=== PATIENT | male | born 1970 | race Two or more races ===

== ENCOUNTER 2018-12-03 00:26 | Emergency (ER) | payer MEDICAID, OTHER ==
[~2018-12-03] VITALS: Ht 170.2 cm; Wt 81.0 kg
[~2018-12-03 00:26] MED LIST: ACYC-202 PO; NO HOME MEDS
[2018-12-03 01:38] LABS: CLARITY,URINE CLEAR (Clear); COLOR,URINE STRAW (Yellow); GLUCOSE, URINE NEGATIVE (Neg); KETONES,URINE NEGATIVE (Neg); LEUKOCYTE ESTERASE ,URINE NEGATIVE (Neg); NITRITES, URINE NEGATIVE (Neg); OCCULT BLOOD,URINE TRACE-INTACT (Neg); PH,URINE 5.5 (4.8-8.0); PROTEIN,URINE NEGATIVE (Neg); UROBILINOGEN,URINE 0.2 E.U/dL (0.2-1.0)
[2018-12-03] MEDS ORDERED: LORazepam 1 MG tablet PO ONE ×3 (01:45→17:55)
[2018-12-03] MEDS ORDERED: nicotine 21mg patch - 24 hr TD ONE (01:45)
[2018-12-03 01:47] LABS: URINE AMPHETAMINE SCREEN NEGATIVE (Neg); URINE BARBITUATE SCREEN NEGATIVE (Neg); URINE BENZODIAZEPINES SCREEN NEGATIVE (Neg); URINE CANNABINOID SCREEN NEGATIVE (Neg); URINE COCAINE SCREEN NEGATIVE (Neg); URINE METHADONE SCREEN NEGATIVE (Neg); URINE OPIATE SCREEN NEGATIVE (Neg); URINE PHENCYCLIDINE SCREEN NEGATIVE (Neg)
[2018-12-03 01:48] LABS: UA COLLECTION TYPE CLN CATCH MIDSTREAM
[2018-12-03 01:49] LABS: BASOPHILS # (AUTO) 0.1 X10'3 (0-0.2); BASOPHILS % (AUTO) 0.8 % (0-1); EOSINOPHILS # (AUTO) 0.5 X10'3 (0-0.9); EOSINOPHILS % (AUTO) 3.2 % (0-6); HEMATOCRIT 46.4 % (42.0-52.0); HEMOGLOBIN 15.4 g/dl (14.0-17.9); LYMPHOCYTES # (AUTO) 2.9 X10'3 (1.1-4.8); LYMPHOCYTES % (AUTO) 20.8 % (21-51); MEAN CORPUSCULAR HEMOGLOBIN 28.1 PG (27.0-31.0); MEAN CORPUSCULAR HGB CONC 33.3 g/dL (33.0-36.5); MEAN CORPUSCULAR VOLUME 84.6 FL (78-98); MEAN PLATELET VOLUME 6.1 FL (7.4-10.4); MONOCYTES # (AUTO) 1.3 X10'3 (0-0.9); MONOCYTES % (AUTO) 9.3 % (2-12); NEUTROPHILS # (AUTO) 9.2 X10'3 (1.8-7.7); NEUTROPHILS % (AUTO) 65.9 % (42-75); PLATELET COUNT 335 X10'3 (140-440); RED BLOOD COUNT 5.49 X10'6 (4.70-6.10); RED CELL DISTRIBUTION WIDTH 14.2 % (11.5-14.5); WHITE BLOOD COUNT 13.9 X10'3 (4.5-11.0)
[2018-12-03 01:51] LABS: RBC,URINE 0-2 /HPF (0-2); WBC,URINE 0-4 /HPF (0-4)
[2018-12-03 01:52] LABS: BACTERIA,URINE FEW /HPF (Neg); SQUAMOUS EPITHELIAL CELL,UR FEW /LPF (FEW)
[2018-12-03 02:14] LABS: ALANINE AMINOTRANSFERASE 52 U/L (12-78); ALBUMIN 4.1 G/DL (3.4-5.0); ALBUMIN/GLOBULIN RATIO 0.9 (1.1-1.5); ALKALINE PHOSPHATASE 53 IU/L (46-116); ANION GAP 14 (8-16); ASPARTATE AMINO TRANSFERASE 38 U/L (10-37); BILIRUBIN,TOTAL 0.2 MG/DL (0.1-1.0); BLOOD UREA NITROGEN 7 MG/DL (7-18); BUN/CREATININE RATIO 9.9 (5.4-32.0); CALCIUM 8.7 MG/DL (8.5-10.1); CHLORIDE 102 MMOL/L (99-107); CREATININE 0.71 MG/DL (0.60-1.10); GLUCOSE 104 MG/DL (70-104); POTASSIUM 3.9 MMOL/L (3.5-5.1); SODIUM 137 MMOL/L (135-145); TOTAL CARBON DIOXIDE 21.4 MMOL/L (24-32); TOTAL PROTEIN 8.5 G/DL (6.4-8.2); eGFR > 90 ML/MIN
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
[2018-12-03 02:23] LABS: ETHANOL 0.189 GM/DL (0.0-0.010)
--- NOTE | 2018-12-03 02:35 | NUR ---
Tele Psyc consult initiated
--- NOTE | 2018-12-03 06:35 | NUR ---
Telepsych just finished with patient. Patient is awake and alert and chatting with another patient. No distress observed. Continue to monitor.
--- NOTE | 2018-12-03 10:00 | NUR ---
Amanda LEIGH, evaluating patient. Continue to monitor.
--- NOTE | 2018-12-03 12:10 | NUR ---
Patient awake and alert. No distress observed. Patient states he is very depressed and thinks of suicide often. Patient states he was drunk when he jumped off the bridge. Patient has several previous suicide attempts. Patient states he hears voices at times but no presently. Patient states he doesn't have a regular doctor to be evaluated. Continue to monitor.
--- NOTE | 2018-12-03 13:50 | NUR ---
Patient stated he feels anxious and like he is withdrawing from ETOH. RN advised Dr Johnston who ordered 1 mg Ativan X 1. We will monitor patient's vital signs and evaluate for needed medication. Continue to monitor.
--- NOTE | 2018-12-03 14:53 | NUR ---
Patient moved to bed 25 to give him more privacy. Patient did not eat breakfast or lunch and states he never eats until dinner. Patient is thin. Continue to monitor.
--- NOTE | 2018-12-03 16:58 | NUR ---
Patient laying in bed with covers up to neck, awake and alert. No distress observed. Continue to monitor.
[2018-12-03 18:17] LABS: BASOPHILS # (AUTO) 0.1 X10'3 (0-0.2); BASOPHILS % (AUTO) 1.1 % (0-1); EOSINOPHILS # (AUTO) 0.5 X10'3 (0-0.9); EOSINOPHILS % (AUTO) 5.2 % (0-6); HEMATOCRIT 43.7 % (42.0-52.0); HEMOGLOBIN 14.5 g/dl (14.0-17.9); LYMPHOCYTES # (AUTO) 2.3 X10'3 (1.1-4.8); LYMPHOCYTES % (AUTO) 23.3 % (21-51); MEAN CORPUSCULAR HGB CONC 33.2 g/dL (33.0-36.5); MEAN CORPUSCULAR VOLUME 84.2 FL (78-98); MEAN PLATELET VOLUME 5.9 FL (7.4-10.4); MONOCYTES # (AUTO) 1.2 X10'3 (0-0.9); NEUTROPHILS # (AUTO) 5.7 X10'3 (1.8-7.7); NEUTROPHILS % (AUTO) 58.4 % (42-75); PLATELET COUNT 329 X10'3 (140-440); RED BLOOD COUNT 5.19 X10'6 (4.70-6.10); RED CELL DISTRIBUTION WIDTH 14.5 % (11.5-14.5); WHITE BLOOD COUNT 9.7 X10'3 (4.5-11.0)
[2018-12-03 18:26] LABS: ALANINE AMINOTRANSFERASE 49 U/L (12-78); ALBUMIN 3.6 G/DL (3.4-5.0); ALBUMIN/GLOBULIN RATIO 0.9 (1.1-1.5); ALKALINE PHOSPHATASE 49 IU/L (46-116); ANION GAP 9 (8-16); ASPARTATE AMINO TRANSFERASE 33 U/L (10-37); BILIRUBIN,TOTAL 0.5 MG/DL (0.1-1.0); BLOOD UREA NITROGEN 8 MG/DL (7-18); BUN/CREATININE RATIO 11.4 (5.4-32.0); CALCIUM 8.8 MG/DL (8.5-10.1); CHLORIDE 102 MMOL/L (99-107); GLUCOSE 74 MG/DL (70-104); POTASSIUM 4.4 MMOL/L (3.5-5.1); SODIUM 137 MMOL/L (135-145); TOTAL CARBON DIOXIDE 26.4 MMOL/L (24-32); TOTAL PROTEIN 7.5 G/DL (6.4-8.2); eGFR > 90 ML/MIN
--- NOTE | 2018-12-03 19:00 | NUR ---
Received pt resting quietly in bed.
--- NOTE | 2018-12-03 21:00 | NUR ---
Pt c/o withdrawal symptoms: shaking. None noted. Given ativan 1mg.
--- NOTE | 2018-12-03 23:00 | NUR ---
Pt asleep in bed, without distress noted.
--- NOTE | 2018-12-04 01:00 | NUR ---
Pt asleep in bed, without distress noted.
--- NOTE | 2018-12-04 03:00 | NUR ---
Pt asleep in bed, without distress noted.
--- NOTE | 2018-12-04 05:00 | NUR ---
Pt remains asleep without distress.
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
[2018-12-04] MEDS: LORazepam 1 MG tablet PO PRN ×3 (08:23→20:31)
--- NOTE | 2018-12-04 08:30 | NUR ---
Served breakfast. Refused his meal. Given Ativan 2 mg. PO PRN for anxiety.
--- NOTE | 2018-12-04 10:52 | NUR ---
Patient is not exhibiting symptoms of alcohol withdrawal, nor is he on the alcohol protocol. Vital signs taken at this time: P = 86, R = 20, B/P = 116/72, O2 = 99
--- NOTE | 2018-12-04 13:30 | NUR ---
relieving RN for lunch, gave report to [facility], they will present case to provider and call back if they accept pt
--- NOTE | 2018-12-04 14:00 | NUR ---
Informed he would be transferred to [facility] this evening. Initially stated he refused to go and would "leave this hospital." Spoke with patient at length about the benefit of in-patient treatment and about the seriousness of his suicide attempt. Patient accepted information poorly. Asked to use the phone. Spoke at length with girlfriend via phone, then asked staff to talk with girlfriend to further explain the transfer to the [facility]. Patient remains unhappy and restless at this time. Given Ativan 2 mg.PO PRN to decrease agitation/increase comfort.
[2018-12-04] MEDS ORDERED: nicotine 21mg patch - 24 hr TD ONE (16:20)
--- NOTE | 2018-12-04 16:34 | NUR ---
Habitrol Patch 21 mg. administered as ordered.
--- NOTE | 2018-12-04 16:42 | NUR ---
Patient attempted to leave the unit by walking out the back door. Confronted by the Lead Supply Worker Linnea and brought back to his bed. Elopement band placed on patient's wrist.
--- NOTE | 2018-12-04 18:30 | NUR ---
Assumed care of pt., pt. sitting up in bed eating dinner at this time. Slightly irritable regarding not being able to go home and pending tx to [facility], however cooperative. Pt. resting in bed, rr even and unlabored.
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
--- NOTE | 2018-12-04 20:45 | NUR ---
Pt. discharged to [facility] accompanied by route driver salesperson and security. Belongings with pt., will call and give report to facility and nurse.
[2018-12-04 21:03] VITALS: BP 130/90
== END 2018-12-04 21:07 ==
LOC: ER 00:27
DX: T14.91XA Suicide attempt, initial encounter (principal); M25.562 Pain in left knee; Z79.899 Other long term (current) drug therapy; Y93.39 Activity, other involving climbing, rappelling and jumping off; Y92.89 Other specified places as the place of occurrence of the external cause; Y99.8 Other external cause status
CPT/HCPCS: 36415; 80053; 80305; 80320; 81001; 84443; 85025; 99285

== ENCOUNTER 2018-12-04 21:58 | Emergency (ER) | payer MEDICAID ==
[~2018-12-04] VITALS: Ht 175.3 cm; Wt 150.0 kg
[~2018-12-04 21:58] MED LIST changes: -ACYC-202 PO
--- NOTE | 2018-12-04 22:00 | NUR ---
Pt. brought back from [facility] by [facility] rolloff driver Liban. [facility] met rolloff driver at the door and told him they were not accepting pt. now. [facility] reports that they tried to call and tell [facility] of this change in plans, however this data analyst report writer never received that phone call. Marilin from [facility] informed, and she reports pt. is to stay another night in [facility] and be re-evaluated for 5150 hold in the morning. Pt. voices understanding and is cooperative. He is on the phone at this time informing his GF of the situation. Will continue to monitor.
--- NOTE | 2018-12-04 22:30 | NUR ---
Admission assessments and 1:1 completed at bedside, pt. is pleasant and cooperative. He denies any pain and no s/s of alcohol withdrawal present at this time AEB no tremors, diaphoresis, n/v and V/S are WNL. Pt. continues to deny S/I or plan at this time, however admits that he has a history of depression and is feeling a little depressed. He would like to obtain an MD at [facility] and a counselor, this proposal writer encouraged pt. to discuss this in the morning with [facility] and he voiced understanding. Pt. also reports past suicide attempts to drown self, strangle self, and cut self. He denies any home medications.
--- NOTE | 2018-12-04 23:25 | NUR ---
Obtained new order for Ativan 1mg Q 6 hr. PRN for anxiety or s/s of alcohol withdrawl from Dr. Caraballo. New order to obtain U/A, however pt. asleep at this time, and will obtain when pt. uses the BR.
[2018-12-04 23:26] LABS: BASOPHILS # (AUTO) 0.1 X10'3 (0-0.2); EOSINOPHILS # (AUTO) 0.5 X10'3 (0-0.9); EOSINOPHILS % (AUTO) 5.4 % (0-6); HEMATOCRIT 44.1 % (42.0-52.0); HEMOGLOBIN 14.5 g/dl (14.0-17.9); LYMPHOCYTES # (AUTO) 2.3 X10'3 (1.1-4.8); LYMPHOCYTES % (AUTO) 22.7 % (21-51); MEAN CORPUSCULAR HEMOGLOBIN 28.2 PG (27.0-31.0); MEAN CORPUSCULAR VOLUME 85.4 FL (78-98); MONOCYTES # (AUTO) 1.2 X10'3 (0-0.9); MONOCYTES % (AUTO) 12.4 % (2-12); NEUTROPHILS # (AUTO) 5.8 X10'3 (1.8-7.7); NEUTROPHILS % (AUTO) 58.5 % (42-75); PLATELET COUNT 326 X10'3 (140-440); RED BLOOD COUNT 5.17 X10'6 (4.70-6.10); RED CELL DISTRIBUTION WIDTH 14.5 % (11.5-14.5); WHITE BLOOD COUNT 9.9 X10'3 (4.5-11.0)
[2018-12-04 23:31] LABS: ALANINE AMINOTRANSFERASE 47 U/L (12-78); ALBUMIN 3.5 G/DL (3.4-5.0); ALBUMIN/GLOBULIN RATIO 0.9 (1.1-1.5); ALKALINE PHOSPHATASE 52 IU/L (46-116); ANION GAP 10 (8-16); ASPARTATE AMINO TRANSFERASE 29 U/L (10-37); BILIRUBIN,TOTAL 0.3 MG/DL (0.1-1.0); BLOOD UREA NITROGEN 10 MG/DL (7-18); BUN/CREATININE RATIO 12.2 (5.4-32.0); CALCIUM 9.1 MG/DL (8.5-10.1); CHLORIDE 103 MMOL/L (99-107); CREATININE 0.82 MG/DL (0.60-1.10); ETHANOL < 0.010 GM/DL (0.0-0.010); GLUCOSE 98 MG/DL (70-104); POTASSIUM 3.9 MMOL/L (3.5-5.1); SODIUM 137 MMOL/L (135-145); TOTAL CARBON DIOXIDE 24.2 MMOL/L (24-32); TOTAL PROTEIN 7.4 G/DL (6.4-8.2); eGFR > 90 ML/MIN
--- NOTE | 2018-12-05 00:34 | NUR ---
Pt. sleeping on his rt side at this time, appears to be resting comfortably. Will monitor. RR even and unlabored.
--- NOTE | 2018-12-05 02:31 | NUR ---
Pt. continues to sleep on rt side, rr even and unlabored, appears to be resting comfortably.
--- NOTE | 2018-12-05 04:40 | NUR ---
Pt. continues to sleep on his rt. side, appears to be resting comfortably. Will continue to monitor.
[2018-12-05 05:37] VITALS: BP 133/96
[2018-12-05] MEDS: LORazepam 1 MG tablet PO PRN ×2 (05:42→11:32)
--- NOTE | 2018-12-05 05:48 | NUR ---
Pt. awake and urine obtained and sent to lab, results pending. Pt. requests PRN Ativan r/t anxiety, medication administered. Pt. laying in bed, rr even and unlabored.
[2018-12-05 06:17] LABS: URINE AMPHETAMINE SCREEN NEGATIVE (Neg); URINE BARBITUATE SCREEN NEGATIVE (Neg); URINE BENZODIAZEPINES SCREEN NEGATIVE (Neg); URINE CANNABINOID SCREEN NEGATIVE (Neg); URINE COCAINE SCREEN NEGATIVE (Neg); URINE METHADONE SCREEN NEGATIVE (Neg); URINE OPIATE SCREEN NEGATIVE (Neg); URINE PHENCYCLIDINE SCREEN NEGATIVE (Neg)
--- NOTE | 2018-12-05 06:30 | NUR ---
Assumed care; pt laying on his right side appears to be asleep; RR even and unlabored.
--- NOTE | 2018-12-05 08:22 | NUR ---
Pt awake and requesting to go. He ate his breakfast and is now laying on his back w/his eyes opened hands behind his head.
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
--- NOTE | 2018-12-05 11:00 | NUR ---
Pt is now sitting on his bed with his hand holding his head. Affect is flat. He states, he is tired of arguing w/his GF and they have discussed her not drinking she has told him she is not going to stop right now.
--- NOTE | 2018-12-05 11:38 | NUR ---
Recieved report from HANG Patel pt has been accepted at [facility]. Pt would like to go home but agrees to go upstairs to see a psychiatrist.
--- NOTE | 2018-12-05 12:30 | NUR ---
Pt discharged to [facility]. Escort provided by [facility] [employer], [employer] and [employer]. All personal property discharged w/pt to [facility] per CAROLE Garza. Pt remains quiet, requesting to go home. Affect is flat he appears depressed keeping his head down when speaking to you. His story regarding ju Addendum: 12/05/18 at 1244 by CHELE jumping from the bridge changed numerous times.
== END 2018-12-05 12:30 ==
LOC: ER 21:58
DX: F32.9 Major depressive disorder, single episode, unspecified (principal); R45.851 Suicidal ideations; F17.200 Nicotine dependence, unspecified, uncomplicated; Z98.890 Other specified postprocedural states
CPT/HCPCS: 36415; 80053; 80305; 80320; 85025; 99285

== ENCOUNTER 2018-12-05 11:28 | Inpatient (IN) | payer MEDICAID ==
[~2018-12-05] VITALS: Ht 175.3 cm; Wt 68.0 kg
[2018-12-05] MEDS ORDERED: magnesium hydroxide 30ml (MOM) UD suspension PO PRN (13:05)
[2018-12-05] MEDS ORDERED: acetaminophen 325mg tablet PO PRN ×2 (13:05)
[2018-12-05] MEDS ORDERED: mag hydrox/Alum hydrox/simeth 30ml oral suspension PO PRN (13:05)
[2018-12-05] MEDS ORDERED: loperamide 2mg capsule PO PRN (13:05)
[2018-12-05] MEDS ORDERED: tuberculin, purif. prot. deriv. 5 units/0.1ml ID ONE (13:05)
[2018-12-05 13:14] VITALS: BP 136/104
[2018-12-05] MEDS: nicotine 21mg patch - 24 hr TD SCH (13:31)
--- NOTE | 2018-12-05 14:09 | NUR ---
Admission note: Pt arrives on unit at 12:30. Pt admitted by Dr Oliver for Depression. PT told police he jumped off the [address] bridge and hurt his knee. Pt later admits to climbing under bridge and jumping into the water. Pt admits to making attempts before. Pt brought up ambulatory from the ER on 5150. Pt cooperative with admission process. PT states he does want help and would like a primary MD and to be started on medications. Pt has medical hz of Asthma, Knee deformity, scoliosis, and some sort of testicular tumor undiagnosed. Pt encouraged to show this to the Hospitalist tomorrow. Pt states feeling fine other than some DT symptoms, shaky,anxious, nervousness.
[2018-12-05] MEDS: hydrOXYzine 25 MG tablet PO PRN (16:20)
[2018-12-05 20:00] VITALS: BP 142/100
[2018-12-05 20:30] VITALS: BP 120/80
[2018-12-05] MEDS: LORazepam 1 MG tablet PO PRN (21:01)
--- NOTE | 2018-12-06 01:33 | NUR ---
Nursing Progress Note: Legal hold: 5150 Client on involuntary status for DTS Report received from nurse with use of SBAR: Why are they here: Pt admitted by Dr Oliver for depression with DTS. PT told police he jumped off the [address] bridge and hurt his knee. Pt later admits to climbing under bridge and jumping into the water. Pt admits to making suicide attempts before. He admits to consuming 12 beers per day, however no s/s of withdrawal noted at this time. Pt. reports he would like to obtain a primary care doctor to have some chronic medical issues addressed and a counselor. Assessment What has happened this shift: Pt. up in the hallway requesting to take a shower at the beginning of the shift, shower taken and pt. voiced content. 1:1 completed at bedside, pt. presents as cooperative, restless, and slightly irritable, and requests PRN Ativan. He reports the Atrax he took earlier for anxiety did not help him. PRN Ativan administered, pt. states, "The only reason I haven't skipped out the door is that you guys are going to work with me to get a primary doctor, and I don't want a warrant." This medical writer provided encouragement and assured pt. that he would be meeting with a mental health social worker and we will help him as here as best as we can, pt. voiced content. Pt. denies S/I, and reports some on-gong depression and anxiety. He denies any s/s of alcohol withdrawal AEB no tremors, n/V, and V/S are WNL. Nicotine patch removed at HS, and pt. educated by this medical writer that it can cause nightmares if left on. Pt. voiced understanding, however stated, "I always have nightmares." Will monitor and endorse to AM shift. S/I, H/I: Denies A/VH: Denies Sleep: Pt. reports he has been sleeping well, however endorses nightmares, will monitor. ADL's: Independent Group attendance: Attends HS snack Were meds taken: Yes Any med S/E: None Mental Status Exam Appearance: Neat and freshly showered, appropriately dressed in hospital attire. Psychomotor activity WNL Eye contact: Good Behavior: Cooperative with some restlessness and irritability Speech: WNL, somewhat pressured when irritated Mood: Slightly irritable, however pleasant Affect: Constricted Thought process: Goal oriented with some poverty of though in regard to mental illness Thought Content: Phobia r/t being in a mental health facility Cognition: A &O X4 Insight: Poor to fair Judgment: Fair Interventions PRN's used: Ativan Therapeutic interventions: Introduced self and attempted to establish rapport, maintained a safe and therapeutic environment, ensured contract for safety, monitored for changes in behavior or risk for elopement and needed intervention, monitored for any s/s of withdrawal, provided positive encouragement, and maintained Q 15 min safety checks. Restraints/seclusion/emergency medication: N/A Justification of Continued Inpatient Treatment: Pt. requires interruption of current crisis, medication adjustments, and a safe and therapeutic environment.
[2018-12-06] MEDS: nicotine 21mg patch - 24 hr TD SCH (06:12)
[2018-12-06 08:00] VITALS: BP 138/101
[2018-12-06] MEDS: LORazepam 1 MG tablet PO PRN (08:57)
[2018-12-06 09:58] LABS: CHOL/HDL RATIO 4.1 (0.00-4.99); CHOLESTEROL 219 MG/DL (0-200); HDL CHOLESTEROL 53 MG/DL (35-60); LDL CHOLESTEROL 160 MG/DL (50-100); TRIGLYCERIDES 66 MG/DL (20-135)
[2018-12-06] MEDS ORDERED: hydrOXYzine 25 MG tablet PO PRN (13:20)
--- NOTE | 2018-12-06 13:23 | NUR ---
1330 - After further hx gathering regarding previous care at [facility], the original D/C plan was to reestablished with a new medical provider now that his previous has retired and would then be able to access PCN care with Dr. Lino and this EDUCATIONAL AIDE. Since that earlier discussion and plan, new info has surfaced. Pt was last seen by YUE Rice/SULEMA in 2010 with no further tx at [facility] and currently is not a pt at [facility]. Pt is not established in any care system in [facility]. Pt is Partnership and is eligable to reestablish care at [facility] but will be unable to access immedietly following discharge from [facility]. Pt was advised of this recent updated info. LUIS Mansfield
[2018-12-06] MEDS ORDERED: amLODIPine 5mg tablet PO ONE (16:00)
[2018-12-06] MEDS: duloxetine 30mg CAPSULE.DR PO SCH (16:14)
[2018-12-06] MEDS: hydrOXYzine 25 MG tablet PO PRN (16:15)
--- NOTE | 2018-12-06 16:34 | NUR ---
Nursing Progress Note: Legal hold: 5150 Client on involuntary status for DTS Report received from HANG Tomlinson with use of SBAR: Why are they here: Pt admitted by Dr Oliver for depression with DTS. PT told police he jumped off the [address] bridge and hurt his knee. Pt later admits to climbing under bridge and jumping into the water. Pt admits to making suicide attempts before. He admits to consuming 12 beers per day, however no s/s of withdrawal noted at this time. Pt. reports he would like to obtain a primary care doctor to have some chronic medical issues addressed and a counselor. Assessment What has happened this shift: The patient was awake at change of shift. Depressed irritated mood and anxious affect. States he feels hopeless and worthless as he has been out of work and not contributing to his household. Difficulties and tensions with girlfriend whom he has been living with and together for 9 years. States he loves her very much but they fight over problems concerning her adult daughter and her huge dogs that live in his garage and cause stress to the household. 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 He also expresses concern he has "Erectile Dysfunction" and a growth on his right testicle. Ativan and Atarax used today for anxiety with good results. he is cooperative and calm and is seeking help. S/I, H/I: Denies A/VH: Denies Sleep: None ADL's: Independent Group attendance: Yes Were meds taken: Yes Any med S/E: None Mental Status Exam Appearance: Neat and clean Eye contact: Good Behavior: Cooperative with some restlessness and irritability Speech: WNL, somewhat pressured when irritated Mood: Slightly irritable, however pleasant Affect: Constricted Thought process: Goal oriented with some poverty of though in regard to mental illness Thought Content: Circumstantial Cognition: A &O X4 Insight: Poor to fair Judgment: Poor Interventions PRN's used: Ativan and Atarax Therapeutic interventions: Introduced self and attempted to establish rapport, maintained a safe and therapeutic environment, ensured contract for safety, monitored for changes in behavior or risk for elopement and needed intervention, monitored for any s/s of withdrawal, provided positive encouragement, and maintained Q 15 min safety checks. Restraints/seclusion/emergency medication: N/A Justification of Continued Inpatient Treatment: Pt. requires interruption of current crisis, medication adjustments, and a safe and therapeutic environment
[2018-12-06 20:00] VITALS: BP 162/111
[2018-12-06] MEDS: prazosin 1mg capsule PO SCH (20:48)
[2018-12-06] MEDS ORDERED: haloperidol 5mg tablet PO PRN (23:30)
[2018-12-06] MEDS ORDERED: LORazepam 2 mg/ml vial IV PRN (23:30)
[2018-12-06] MEDS ORDERED: haloperidol lactate 5mg/ml inj IM PRN (23:30)
--- NOTE | 2018-12-07 03:57 | NUR ---
Nursing Progress Note: Legal hold: 5150 Client on involuntary status for DTS Report received from nurse with use of SBAR: HANG Patel Why are they here: Pt admitted by Dr Oliver for depression with DTS. PT told police he jumped off the [address] and hurt his knee. Pt later admits to climbing under bridge and jumping into the water. Pt admits to making suicide attempts before. He admits to consuming 12 beers per day, however no s/s of withdrawal noted at this time. Pt. reports he would like to obtain a primary care doctor to have some chronic medical issues addressed and a counselor. Assessment What has happened this shift: The patient was in his room at shift change sitting in a chair in the corner. He agreed to 1:1 at bedside. The patient presents as irritable and angry. When talking to the patient and asking what happened to bring him here, he stated, "I was kicked out by my ." He did not explain what happened. When talking to him, he was told that sometimes homeless patients go to [facility]. Now, he reports that he's not really kicked out and will be returning. The patient took what was said literally, and got upset, thinking he was going to be held somewhere else. He believes that he was tricked, with his 5150 starting when he arrived on the unit. He says he's absolutely leaving when 72 hours is up. "I just want to do what's required of me, then go home." The patient admits to being depressed and anxious, and states that he's made many attempts at ending his life, but he's denying SI/HI right now. The patient has medical concerns, and was seen by Dr. San today. He shows no signs of being in withdrawals from alcohol. S/I, H/I: Denies A/VH: Denies Sleep: Reports good sleep. ADL's: Independent Group attendance: No groups at night. Were meds taken: Yes Any med S/E: None Mental Status Exam Appearance: Clean, well dressed in hospital scrubs. Good hygiene. Eye contact: Good Behavior: Sits in his room alone being irritated and upset at being here. Speech: Normal rate/rhythm. Pressured when irritated. Mood: Irritable. Affect: Constricted Thought process: Linear, goal oriented. Thought Content: Preoccupied with getting out of here. Cognition: A &O X4 Insight: Poor to fair Judgment: Fair Interventions PRN's used: Therapeutic interventions: Introduced self and attempted to establish rapport, maintained a safe and therapeutic environment, ensured contract for safety, monitored for changes in behavior or risk for elopement and needed intervention, monitored for any s/s of withdrawal, provided positive encouragement, and maintained Q 15 min safety checks. Restraints/seclusion/emergency medication: N/A Justification of Continued Inpatient Treatment: Pt. requires interruption of current crisis, medication adjustments, and a safe and therapeutic environment.
[2018-12-07 07:00] VITALS: BP 143/108
[2018-12-07] MEDS ORDERED: amLODIPine 5mg tablet PO SCH (08:00)
[2018-12-07] MEDS: duloxetine 30mg CAPSULE.DR PO SCH (08:24)
[2018-12-07] MEDS: folic acid 1mg tablet PO SCH (08:24)
[2018-12-07] MEDS: multivitamins, therapeutics tablet PO SCH (08:24)
[2018-12-07] MEDS: thiamine 100mg tablet PO SCH (08:25)
[2018-12-07] MEDS: nicotine 21mg patch - 24 hr TD SCH (08:44)
[2018-12-07] MEDS ORDERED: amLODIPine 5mg tablet PO ONE (09:10)
[2018-12-07] MEDS ORDERED: NICOTINE POLACRILEX 2 MG LOZENGE MM PRN (12:20)
[2018-12-07] MEDS: LORazepam 1 MG tablet PO PRN ×2 (12:21→20:22)
--- NOTE | 2018-12-07 14:54 | NUR ---
Nursing Progress Note: Legal hold: 5150 Client on involuntary status for DTS Report received from nurse with use of SBAR: Bushra RN Why are they here: Pt admitted by Dr Oliver for depression with DTS. PT told police he jumped off the [address] bridge and hurt his knee. Pt later admits to climbing under bridge and jumping into the water. Pt admits to making suicide attempts before. He admits to consuming 12 beers per day, however no s/s of withdrawal noted at this time. Pt. reports he would like to obtain a primary care doctor to have some chronic medical issues addressed and a counselor. Assessment What has happened this shift: The patient was in his room at shift change sitting at bedside. He agreed to 1:1 at bedside. The patient presents as calm and cooperative. Rates depression as a 3/10 compared to 10/10 on admission. States his issues are woman related and shared that his girlfriend does not want him to return home. Pt. Approached this insurance underwriter around noon stating that he was really freaking out. Reports he has attempted to call girlfriend several times to get his sons phone number but she is not answering or responding. Rated anxiety at a 10/10, medicated with Ativan, and provided 1:1 therapeutic communication. Patient admits current living environment is not healthy and he wishes to stop smoking and stop drinking. He will then revert to wanting to go home and make it work with girlfriend. He has formulated alternative plans if he doesnt return home which includes staying with his son. This insurance underwriter mentioned the [place], which he seemed to be okay with. Patient did report that girl friend called back and agreed to notify his son of his admission. S/I, H/I: Denies A/VH: Denies Sleep: 7.25 ADL's: Independent Group attendance: Yes. Were meds taken: Yes Any med S/E: None Mental Status Exam Appearance: Clean, well dressed in hospital scrubs. Good hygiene. Eye contact: Good Behavior: Appropriate with periods on increased anxiety. Speech: Normal rate/rhythm. Pressured when irritated. Mood: Labile Affect: Congruent with mood Thought process: Linear, goal oriented. Thought Content: Getting better, finding job and housing Cognition: A &O X4 Insight: Poor to fair Judgment: Fair Interventions PRN's used: Ativan Therapeutic interventions: Introduced self and attempted to establish rapport, maintained a safe and therapeutic environment, ensured contract for safety, monitored for changes in behavior or risk for elopement and needed intervention, monitored for any s/s of withdrawal, provided positive encouragement, and maintained Q 15 min safety checks. Restraints/seclusion/emergency medication: N/A Justification of Continued Inpatient Treatment: Pt. requires interruption of current crisis, medication adjustments, and a safe and therapeutic environment.
[2018-12-07 19:55] VITALS: BP 134/88
[2018-12-07] MEDS: prazosin 1mg capsule PO SCH (20:22)
--- NOTE | 2018-12-08 03:49 | NUR ---
Nursing Progress Note: Legal hold: 5250 Client on involuntary status for DTS Report received from nurse with use of SBAR: HANG Patel Why are they here: Pt admitted by Dr Oliver for depression with DTS. PT told police he jumped off the [address] bridge and hurt his knee. Pt later admits to climbing under bridge and jumping into the water. Pt admits to making suicide attempts before. He admits to consuming 12 beers per day, however no s/s of withdrawal noted at this time. Pt. reports he would like to obtain a primary care doctor to have some chronic medical issues addressed and a counselor. Assessment What has happened this shift: The patient was seen in the rec room for 1:1. He reports that he had a good day. 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 The patient now believes that he's not welcome back at his girlfriends house. He states that he will quit drinking, smoking, and plans to get a job, then try and win her back. He says that he's eating well, sleeping good, and is happy with medications. The patient has spent more time on the unit today, versus isolating in his room. He denies SI/HI, or AV/H. S/I, H/I: Denies A/VH: Denies Sleep: Reports good sleep. ADL's: Independent Group attendance: No groups at night. Were meds taken: Yes Any med S/E: None Mental Status Exam Appearance: Clean, well dressed in Angelito's, t-shirt, and hat. Good hygiene. Eye contact: Good Behavior: the patient spent the evening calmly watching basketball on tv. Speech: Normal rate/rhythm. Pressured when irritated. Mood: Irritable, labile. Affect: Constricted Thought process: Linear, goal oriented. Thought Content: Preoccupied with getting out of here. Cognition: A &O X4 Insight: Poor to fair Judgment: Fair Interventions PRN's used: Therapeutic interventions: Introduced self and attempted to establish rapport, maintained a safe and therapeutic environment, ensured contract for safety, monitored for changes in behavior or risk for elopement and needed intervention, monitored for any s/s of withdrawal, provided positive encouragement, and maintained Q 15 min safety checks. Restraints/seclusion/emergency medication: N/A Justification of Continued Inpatient Treatment: Pt. requires interruption of current crisis, medication adjustments, and a safe and therapeutic environment.
[2018-12-08] MEDS: duloxetine 30mg CAPSULE.DR PO SCH (07:57)
[2018-12-08] MEDS: multivitamins, therapeutics tablet PO SCH (07:57)
[2018-12-08] MEDS: thiamine 100mg tablet PO SCH (07:58)
[2018-12-08] MEDS: amLODIPine 5mg tablet PO SCH (07:59)
[2018-12-08] MEDS: folic acid 1mg tablet PO SCH (07:59)
[2018-12-08] MEDS: nicotine 21mg patch - 24 hr TD SCH (08:02)
[2018-12-08 08:15] VITALS: BP 135/94
--- NOTE | 2018-12-08 17:30 | NUR ---
Nursing Progress Note: Legal hold: Voluntary Client on involuntary status for DTS Report received from nurse with use of SBAR: HANG Patel Why are they here: Pt admitted by Dr Oliver for depression with DTS. PT told police he jumped off the [employer] bridge and hurt his knee. Pt later admits to climbing under bridge and jumping into the water. Pt admits to making suicide attempts before. He admits to consuming 12 beers per day, however no s/s of withdrawal noted at this time. Pt. reports he would like to obtain a primary care doctor to have some chronic medical issues addressed and a counselor. Assessment What has happened this shift: Pt. is awake at beginning of shift in community room watching tv. Pt. is social on unit talking with other pt.s. 1:1 done at bedside, pt. reports feeling anxious and depressed but denies SI/HI, A/V H. Pt. took medications. Pt. reports he does not feel ready to be discharged yet as he wants to get his medications stabalized. Pt. denies ETOH cravings. S/I, H/I: Denies A/VH: Denies Sleep: 8.25 ADL's: Independent Group attendance: Attended groups and participated Were meds taken: Yes Any med S/E: None Mental Status Exam Appearance: Clean, well dressed in Angelito's, t-shirt, and hat. Good hygiene. Eye contact: Good Behavior: the interacting with pt. and on the daniel appropriately, watching tv. Speech: Normal rate/rhythm. Mood: pleasent but easily frustrated. Affect: Constricted Thought process: Linear, goal oriented. Thought Content: Feels it's good for him to stay here and gets his medications right. Cognition: A&O X4 Insight: Fair Judgment: Fair Interventions PRN's used: Therapeutic interventions: Introduced self and attempted to establish rapport, maintained a safe and therapeutic environment, ensured contract for safety, monitored for changes in behavior or risk for elopement and needed intervention, monitored for any s/s of withdrawal, provided positive encouragement, and maintained Q 15 min safety checks. Restraints/seclusion/emergency medication: N/A Justification of Continued Inpatient Treatment: Pt. requires interruption of current crisis, medication adjustments, and a safe and therapeutic environment.
--- NOTE | 2018-12-08 19:39 | NUR ---
Nursing Progress Note: Legal hold: Voluntary Client on involuntary status for DTS Report received from nurse with use of SBAR: HANG Patel Why are they here: Pt admitted by Dr Oliver for depression with DTS. PT told police he jumped off the [address] [employer] [address] bridge and hurt his knee. Pt later admits to climbing under bridge and jumping into the water. Pt admits to making suicide attempts before. He admits to consuming 12 beers per day, however no s/s of withdrawal noted at this time. Pt. reports he would like to obtain a primary care doctor to have some chronic medical issues addressed and a counselor. Assessment What has happened this shift: Pt was sitting on his bed at change of shift 1:1 assessment completed at bedside. Pt states he is here for SA, c/o being "locked up for six days" but is here voluntarily. 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 He states he doesnt think a rehab will help him and states "i quit meth on my own I can quit drinking too." We discussed that pt likes to fish, and do art work as a positive coping skill. He states that he only has an 8th grade graduation because he quit school because he doesnt like to be around people. 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 Pt is socializing on the unit tonight w/other patients and staff. Reports his appetite is good and he has been sleeping "like a baby" states medicine helps him sleep. Pt is pleasant and cooperative, denies depression, is somewhat anxious during conversation. . S/I, H/I: Denies A/VH: Denies Sleep: "Like a baby" ADL's: Independent Group attendance: no evening groups Were meds taken: Yes Any med S/E: None Mental Status Exam Appearance: adequately groomed and dressed appropriately for environment Eye contact: Good Behavior: socializing w/others, relaxing in his room Speech: Normal rate/rhythm. Mood: pleasant Affect: Constricted Thought process: Linear, goal oriented. Thought Content: discussing alternative coping skills to drinking etoh Cognition: A&O X4 Insight: Fair Judgment: Fair Interventions PRN's used: Therapeutic interventions: Established rapport, 1:1 assessment, administered medications, monitored for s/e, maintained Q 15 min safety checks. Restraints/seclusion/emergency medication: N/A Justification of Continued Inpatient Treatment: Pt. requires interruption of current crisis, medication adjustments, and a safe and therapeutic environment.
[2018-12-08] MEDS: prazosin 1mg capsule PO SCH (20:12)
[2018-12-08 20:21] VITALS: BP 147/92
[2018-12-09] MEDS: nicotine 21mg patch - 24 hr TD SCH (07:43)
[2018-12-09] MEDS: amLODIPine 5mg tablet PO SCH (07:44)
[2018-12-09] MEDS: multivitamins, therapeutics tablet PO SCH (07:44)
[2018-12-09] MEDS: thiamine 100mg tablet PO SCH (07:45)
[2018-12-09] MEDS: duloxetine 30mg CAPSULE.DR PO SCH (07:45)
[2018-12-09] MEDS: folic acid 1mg tablet PO SCH (07:51)
[2018-12-09] MEDS: naltrexone 50mg tablet PO SCH (08:09)
--- NOTE | 2018-12-09 17:45 | NUR ---
Nursing Progress Note: Legal hold: Voluntary Client on involuntary status for DTS Report received from nurse with use of SBAR: Bushra RN Why are they here: Pt admitted by Dr Oliver for depression with DTS. PT told police he jumped off the [address] [address] bridge and hurt his knee. Pt later admits to climbing under bridge and jumping into the water. Pt admits to making suicide attempts before. He admits to consuming 12 beers per day, however no s/s of withdrawal noted at this time. Pt. reports he would like to obtain a primary care doctor to have some chronic medical issues addressed and a counselor. Assessment What has happened this shift: Pt. reports feeling anxious about going home and feeling ETOH cravings. Pt. reports he is concerned how he is going to pay for medications when discharged because he has no job. Pt. appears more anxious today. Pt. seen in day room watching TV and going back and forth from his room to community room. Pt. did not attend groups today. Pt. reports his Naltrexone made him feel "weird" but will not elaborate on his symptoms. S/I, H/I: Denies A/VH: Denies Sleep: Pt. reports he sleeps good. ADL's: Independent Group attendance: Pt. did not attend groups. Were meds taken: Yes Any med S/E: Pt. reports feeling weird from Naltrexone but will not elaborate. Symptoms went away after a couple hours. Mental Status Exam Appearance: adequately groomed and dressed appropriately for environment Eye contact: Good Behavior: socializing w/others, relaxing in his room Speech: Normal rate/rhythm. Mood: pleasant but anxious Affect: Constricted Thought process: Linear, goal oriented. Thought Content: Discharge plans. Cognition: A&O X4 Insight: Fair Judgment: Fair Interventions PRN's used: None Therapeutic interventions: Established rapport, 1:1 assessment, administered medications, monitored for s/e, maintained Q 15 min safety checks. Restraints/seclusion/emergency medication: N/A Justification of Continued Inpatient Treatment: Pt. requires interruption of current crisis, medication adjustments, and a safe and therapeutic environment.
[2018-12-09 20:00] VITALS: BP 144/97
[2018-12-09] MEDS: prazosin 1mg capsule PO SCH (20:38)
--- NOTE | 2018-12-10 02:25 | NUR ---
Nursing Progress Note Legal hold: Voluntary Client on voluntary/involuntary status for danger to self Report received from nurse with use of DEMETRICE [employer] Why are they here: The patient is a 48 year old male who was taken to the ER on 12/03 on a 5150 hold by the [facility]. after it was reported that he had jumped off the [place] bridge into the [facility] after drinking and fighting with his girlfriend. He was admitted to [facility] on 12/05/18 for stabilization. His diagnosis include: MDD, Anxiety, PTSD, and alcohol abuse. Medical hx includes asthma, scoliosis, testicular tumor and etoh abuse. Assessment What has happened this shift: The patient was up on the unit and was social with others. He was friendly and cooperative during the evening assessment. He stated that he is feeling better than when he initially was admitted and stated, "Oh yea I fell like a whole different person" He denies that he is having active suicidal thoughts but continues to feel like he would rather go to sleep and not wake up. He stated tonight his mood was "mellow" He stated that earlier his anxiety was high and that he was going to ask for an ativan but stated he was able to control it and did not want to take the med because he stated that he was going to just take a med when he was discharged every time he felt anxiety. He denies cravings for ETOH. He reported that he slept very poorly last night. He denies thoughts to harm others. He denies psychotic symptoms and none were evident during the evening assessment. S/I, H/I: The patient reports passive suicidal thoughts A/VH: Denies Sleep: The patient has not requested additional sleep medication ADL's: Independent but has not showered for several days. Group attendance: No PM group held Were meds taken: The patient is medication compliant Any med S/E Denies Mental Status Exam Appearance: well groomed and appropriately dressed Eye contact: good Behavior: Social, friendly, cooperative Speech: Moderate rate and volume, appropriate Mood: Improving with continued periods of elevated anxiety Affect: WNL Thought process: Linear and logical Thought Content: Passive SI Cognition: Alert and oriented Insight: Fair Judgment: Fair Interventions PRN's used: NONE Therapeutic interventions: One to one with the patient to assess severity of depressive symptoms and self harm risk. The patient remains on q 15 minute safety checks Restraints/seclusion/emergency medication:NA Justification of Continued Inpatient Treatment: The patient reports improving mood but periods of increased anxiety and passive suicidal thoughts.
[2018-12-10] MEDS: duloxetine 30mg CAPSULE.DR PO SCH (07:38)
[2018-12-10] MEDS: naltrexone 50mg tablet PO SCH (07:38)
[2018-12-10] MEDS: thiamine 100mg tablet PO SCH (07:39)
[2018-12-10] MEDS: folic acid 1mg tablet PO SCH (07:39)
[2018-12-10] MEDS: multivitamins, therapeutics tablet PO SCH (07:39)
[2018-12-10] MEDS: amLODIPine 5mg tablet PO SCH (07:40)
[2018-12-10 07:47] VITALS: BP 132/93
[2018-12-10 07:48] VITALS: BP 116/71
[2018-12-10] MEDS: nicotine 21mg patch - 24 hr TD SCH (08:43)
--- NOTE | 2018-12-10 11:46 | NUR ---
Initial: Pt admit to [facility] for depression. Pt currently on a regular diet with fluctuating PO intake of 100% with refusals. Noted that pt documented to refuse breakfast and lunch most often, recommend ONS for those meals for when PO intake is low. Pt currently receiving Thiamine, Folic acid, and MVI d/t hx of 12-24 beers/day. LBM 12/10. No edema or wounds. No nutrition diagnosis at this time. Will continue to follow. Recommendations: 1) Continue with regular diet 2) Ensure Enlive BIDBL 3) Continue Thiamine, Folic acid, MVI given hx Etoh abuse 4) Weekly wt Addendum: 12/10/18 at [address] Amended: Links added.
[2018-12-10] MEDS ORDERED: NALT50TA PO (12:59)
[2018-12-10] MEDS ORDERED: MULT-1179 PO (12:59)
[2018-12-10] MEDS ORDERED: AMLO10TA PO (12:59)
[2018-12-10] MEDS ORDERED: NICO-687 TD (12:59)
[2018-12-10] MEDS ORDERED: DULO60CA64 PO (12:59)
[2018-12-10] MEDS ORDERED: PRAZ1CAP5 PO (12:59)
--- NOTE | 2018-12-10 14:28 | NUR ---
Pt. discharged to home, picked up by girlfriend with car. pt. ambulated off unit. Pt. denies SI/HI, A/V H. Pt. Pt. scripts faxed to [facility] on [employer] [email or web address] Pt. discharged with all belongings and valuables. F/U instructions given.
== END 2018-12-10 14:28 | disposition home or self-care (01) | DRG 754 ==
LOC: ADULT MH 11:28
PROVIDERS: ADMIT Psychiatry & Neurology Psychiatry; ATTEND Psychiatry & Neurology Psychiatry
DX: F32.9 Major depressive disorder, single episode, unspecified (principal); F10.20 Alcohol dependence, uncomplicated; F17.210 Nicotine dependence, cigarettes, uncomplicated; F43.10 Post-traumatic stress disorder, unspecified; I10 Essential (primary) hypertension; J45.909 Unspecified asthma, uncomplicated; N50.89 Other specified disorders of the male genital organs; N52.9 Male erectile dysfunction, unspecified; Z79.899 Other long term (current) drug therapy; Z83.3 Family history of diabetes mellitus; Y93.39 Activity, other involving climbing, rappelling and jumping off; Y92.89 Other specified places as the place of occurrence of the external cause; Y99.8 Other external cause status; Z71.6 Tobacco abuse counseling
CPT/HCPCS: 36415; 76870; 80061; 83036; 87070; Q0177

== ENCOUNTER 2019-03-24 12:36 | Emergency (ER) | payer MEDICAID ==
[~2019-03-24] VITALS: Ht 175.3 cm; Wt 66.8 kg
[~2019-03-24 12:36] MED LIST changes: +AMLO10TA PO; +DULO60CA65 PO; +MULT-1179 PO; +NALT50TA PO; +NICO-687 TD; -NO HOME MEDS; +PRAZ1CAP5 PO
[2019-03-24 12:42] VITALS: BP 134/93
[2019-03-24] MEDS ORDERED: TETanus/Pertussis (Acell)/Diphther VAC/PF (Tdap-Adult) 0.5ml syringe IMVAC ONE (13:05)
== END 2019-03-24 13:25 | disposition home or self-care (01) ==
LOC: ER 12:36
DX: S68.121A Partial traumatic metacarpophalangeal amputation of left index finger, initial encounter (principal); F10.99 Alcohol use, unspecified with unspecified alcohol-induced disorder; Z98.890 Other specified postprocedural states; Z79.899 Other long term (current) drug therapy; W26.8XXA Contact with other sharp object(s), not elsewhere classified, initial encounter; Y93.89 Activity, other specified; Y92.89 Other specified places as the place of occurrence of the external cause; Y99.8 Other external cause status; Y90.9 Presence of alcohol in blood, level not specified
CPT/HCPCS: 90471; 99283

== ENCOUNTER 2019-05-27 20:42 | Emergency (ER) | payer MEDICAID ==
[~2019-05-27] VITALS: Ht 175.3 cm; Wt 64.5 kg
[2019-05-27] MEDS ORDERED: HYDROcodone/acetaminophen 5mg/325mg tablet PO ONE (21:35)
[2019-05-27 22:17] VITALS: BP 136/95
[2019-05-28] MEDS ORDERED: HYDR-3965 PO (15:04)
== END 2019-05-27 22:15 | disposition home or self-care (01) ==
LOC: ER 20:43
DX: S80.212A Abrasion, left knee, initial encounter (principal); Z98.890 Other specified postprocedural states; Z79.899 Other long term (current) drug therapy; W01.0XXA Fall on same level from slipping, tripping and stumbling without subsequent striking against object, initial encounter; Y93.89 Activity, other specified; Y92.89 Other specified places as the place of occurrence of the external cause; Y99.8 Other external cause status
CPT/HCPCS: 29505; 73564; 99283

== ENCOUNTER 2019-05-28 14:03 | Emergency (ER) | payer MEDICAID ==
[~2019-05-28] VITALS: Ht 175.3 cm; Wt 63.6 kg
[2019-05-28 14:13] VITALS: BP 155/104
[2019-05-28] MEDS ORDERED: HYDR-3965 PO (15:04)
[2019-05-28] MEDS ORDERED: HYDROcodone/acetaminophen 5mg/325mg tablet PO ONE (15:05)
== END 2019-05-28 16:00 | disposition home or self-care (01) ==
LOC: ER 14:04
DX: S82.092A Other fracture of left patella, initial encounter for closed fracture (principal); F10.99 Alcohol use, unspecified with unspecified alcohol-induced disorder; Z98.890 Other specified postprocedural states; Z79.899 Other long term (current) drug therapy; W01.0XXA Fall on same level from slipping, tripping and stumbling without subsequent striking against object, initial encounter; Y93.89 Activity, other specified; Y92.89 Other specified places as the place of occurrence of the external cause; Y99.8 Other external cause status; Y90.9 Presence of alcohol in blood, level not specified
CPT/HCPCS: 29505; 99283

== ENCOUNTER 2019-06-16 15:17 | Outpatient (CLI) | payer MEDICAID ==
[~2019-06-16 15:17] MED LIST changes: +HYDR-3965 PO
== END 2019-06-16 17:00 | disposition home or self-care (01) ==
LOC: ORTHO 15:17
PROVIDERS: ATTEND Orthopaedic Surgery
DX: S82.092D Other fracture of left patella, subsequent encounter for closed fracture with routine healing (principal); J45.909 Unspecified asthma, uncomplicated; F17.200 Nicotine dependence, unspecified, uncomplicated; X58.XXXD Exposure to other specified factors, subsequent encounter
CPT/HCPCS: 73564; G0463

== ENCOUNTER 2020-03-21 15:28 | Emergency (ER) | payer MEDICAID ==
[~2020-03-21] VITALS: Ht 175.3 cm; Wt 66.4 kg
[~2020-03-21 15:28] MED LIST changes: -HYDR-3965 PO; -MULT-1179 PO; +MULT-25 PO
[2020-03-21] MEDS ORDERED: LORazepam 1 MG tablet PO ONE (15:45)
[2020-03-21] MEDS ORDERED: thiamine 100mg tablet PO ONE (15:45)
[2020-03-21] MEDS ORDERED: folic acid 1mg tablet PO ONE (15:45)
[2020-03-21 16:05] LABS: BASOPHILS # (AUTO) 0.1 X10'3 (0-0.2); BASOPHILS % (AUTO) 1.5 % (0-1); EOSINOPHILS # (AUTO) 0.3 X10'3 (0-0.9); EOSINOPHILS % (AUTO) 3.7 % (0-6); HEMATOCRIT 46.3 % (42.0-52.0); HEMOGLOBIN 15.4 g/dl (14.0-17.9); LYMPHOCYTES # (AUTO) 2.8 X10'3 (1.1-4.8); LYMPHOCYTES % (AUTO) 35.5 % (21-51); MEAN CORPUSCULAR HEMOGLOBIN 28.9 PG (27.0-31.0); MEAN CORPUSCULAR HGB CONC 33.2 g/dL (33.0-36.5); MEAN CORPUSCULAR VOLUME 86.9 FL (78-98); MONOCYTES # (AUTO) 0.7 X10'3 (0-0.9); MONOCYTES % (AUTO) 8.9 % (2-12); NEUTROPHILS % (AUTO) 50.4 % (42-75); PLATELET COUNT 235 X10'3 (140-440); RED BLOOD COUNT 5.32 X10'6 (4.70-6.10); RED CELL DISTRIBUTION WIDTH 13.9 % (11.5-14.5); WHITE BLOOD COUNT 7.9 X10'3 (4.5-11.0)
--- NOTE | 2020-03-21 16:20 | NUR ---
Received patient at this time to bed 23.
[2020-03-21 16:24] LABS: CLARITY,URINE CLEAR (Clear); COLOR,URINE STRAW (Yellow); GLUCOSE, URINE NEGATIVE (Neg); KETONES,URINE NEGATIVE (Neg); LEUKOCYTE ESTERASE ,URINE NEGATIVE (Neg); NITRITES, URINE NEGATIVE (Neg); OCCULT BLOOD,URINE SMALL (Neg); PROTEIN,URINE NEGATIVE (Neg); UROBILINOGEN,URINE 0.2 E.U/dL (0.2-1.0)
[2020-03-21 16:28] LABS: UA COLLECTION TYPE CLN CATCH MIDSTREAM
[2020-03-21 16:28] LABS: ALANINE AMINOTRANSFERASE 140 U/L (12-78); ALBUMIN 3.8 G/DL (3.4-5.0); ALKALINE PHOSPHATASE 60 IU/L (46-116); ANION GAP 13 (8-16); ASPARTATE AMINO TRANSFERASE 118 U/L (10-37); BILIRUBIN,TOTAL 0.3 MG/DL (0.1-1.0); BLOOD UREA NITROGEN 4 MG/DL (7-18); BUN/CREATININE RATIO 5.8 (5.4-32.0); CALCIUM 8.1 MG/DL (8.5-10.1); CHLORIDE 102 MMOL/L (99-107); CREATININE 0.69 MG/DL (0.60-1.10); GLUCOSE 94 MG/DL (70-104); POTASSIUM 3.9 MMOL/L (3.5-5.1); SODIUM 137 MMOL/L (135-145); TOTAL CARBON DIOXIDE 21.8 MMOL/L (24-32); TOTAL PROTEIN 7.8 G/DL (6.4-8.2); eGFR > 90 ML/MIN
[2020-03-21 16:29] LABS: MUCUS STRANDS FEW /LPF (Neg); SQUAMOUS EPITHELIAL CELL,UR NONE SEEN /LPF (FEW)
[2020-03-21 16:30] LABS: BACTERIA,URINE NONE SEEN /HPF (Neg); RBC,URINE NONE SEEN /HPF (0-2); WBC,URINE 0-4 /HPF (0-4)
[2020-03-21 16:37] LABS: ETHANOL 0.242 GM/DL (0.0-0.010)
[2020-03-21 17:20] LABS: URINE AMPHETAMINE SCREEN NEGATIVE (Neg); URINE BARBITUATE SCREEN NEGATIVE (Neg); URINE BENZODIAZEPINES SCREEN NEGATIVE (Neg); URINE CANNABINOID SCREEN POSITIVE (Neg); URINE COCAINE SCREEN NEGATIVE (Neg); URINE METHADONE SCREEN NEGATIVE (Neg); URINE OPIATE SCREEN NEGATIVE (Neg); URINE PHENCYCLIDINE SCREEN NEGATIVE (Neg)
--- NOTE | 2020-03-21 17:52 | NUR ---
Packet faxed to [facility] tad office.
--- NOTE | 2020-03-21 17:57 | NUR ---
Patient resting back in bed, no complaints. Will cont. to monitor.
--- NOTE | 2020-03-21 18:23 | NUR ---
Noc nurse aware of elevated BP to be monitored, transferred care over.
[2020-03-21] MEDS ORDERED: LORA-269 PO (18:24)
[2020-03-21] MEDS ORDERED: NICO-687 TOP (18:41)
[2020-03-21] MEDS ORDERED: AMLO10TA48 PO (18:41)
[2020-03-21] MEDS ORDERED: nicotine 21mg patch - 24 hr TD ONE (20:40)
[2020-03-22 06:04] VITALS: BP_DIAS 109
--- NOTE | 2020-03-22 07:01 | NUR ---
PT IS SLEEPING
[2020-03-22] MEDS ORDERED: amLODIPine 5mg tablet PO SCH (08:00)
[2020-03-22] MEDS ORDERED: LORazepam 1 MG tablet PO SCH (08:00)
[2020-03-22] MEDS ORDERED: nicotine 21mg patch - 24 hr TD SCH (08:00)
--- NOTE | 2020-03-22 08:05 | NUR ---
PT IS RESTING IN HIS BED
[2020-03-22 08:10] VITALS: BP_SYST 149
== END 2020-03-22 09:27 | disposition home or self-care (01) ==
LOC: ER 15:29
DX: F32.9 Major depressive disorder, single episode, unspecified (principal); F10.20 Alcohol dependence, uncomplicated; Z98.890 Other specified postprocedural states; Z79.899 Other long term (current) drug therapy; Y90.0 Blood alcohol level of less than 20 mg/100 ml
CPT/HCPCS: 36415; 80053; 80305; 80320; 81001; 84443; 85025; 99285

== ENCOUNTER 2022-08-20 20:33 | Emergency (ER) | payer MEDICAID ==
[~2022-08-20 20:33] MED LIST changes: -AMLO10TA PO; +AMLO10TA48 PO; -DULO60CA65 PO; +LORA-269 PO; -MULT-25 PO; -NALT50TA PO; -NICO-687 TD; +NICO-687 TOP; -PRAZ1CAP5 PO
[2022-08-21] MEDS ORDERED: POLY17PO10 PO (11:19)
== END 2022-08-20 22:00 | disposition left against medical advice (07) ==
LOC: ER 20:35
DX: K92.1 Melena (principal); Z53.21 Procedure and treatment not carried out due to patient leaving prior to being seen by health care provider

== ENCOUNTER 2022-08-21 08:22 | Emergency (ER) | payer MEDICAID ==
[~2022-08-21] VITALS: Ht 175.3 cm; Wt 58.1 kg
[2022-08-21 10:54] LABS: CLARITY,URINE CLEAR (Clear); COLOR,URINE YELLOW (Yellow); GLUCOSE, URINE NEGATIVE (Neg); KETONES,URINE TRACE mg/dl (Neg); LEUKOCYTE ESTERASE ,URINE NEGATIVE (Neg); NITRITES, URINE NEGATIVE (Neg); OCCULT BLOOD,URINE NEGATIVE (Neg); PH,URINE 6.5 (4.8-8.0); PROTEIN,URINE NEGATIVE (Neg); UROBILINOGEN,URINE 0.2 E.U/dL (0.2-1.0)
[2022-08-21 10:56] LABS: BASOPHILS # (AUTO) 0.1 X10'3 (0-0.2); EOSINOPHILS # (AUTO) 0.1 X10'3 (0-0.9); EOSINOPHILS % (AUTO) 1.4 % (0-6); HEMATOCRIT 41.2 % (42.0-52.0); HEMOGLOBIN 13.9 g/dl (14.0-17.9); LYMPHOCYTES # (AUTO) 3.1 X10'3 (1.1-4.8); LYMPHOCYTES % (AUTO) 34.9 % (21-51); MEAN CORPUSCULAR HEMOGLOBIN 29.1 PG (27.0-31.0); MEAN CORPUSCULAR HGB CONC 33.6 g/dL (33.0-36.5); MEAN CORPUSCULAR VOLUME 86.6 FL (78-98); MEAN PLATELET VOLUME 5.9 FL (7.4-10.4); MONOCYTES % (AUTO) 11.5 % (2-12); NEUTROPHILS # (AUTO) 4.5 X10'3 (1.8-7.7); NEUTROPHILS % (AUTO) 51.2 % (42-75); PLATELET COUNT 413 X10'3 (140-440); RED BLOOD COUNT 4.76 X10'6 (4.70-6.10); RED CELL DISTRIBUTION WIDTH 13.9 % (11.5-14.5); WHITE BLOOD COUNT 8.9 X10'3 (4.5-11.0)
[2022-08-21 11:00] LABS: UA COLLECTION TYPE CLN CATCH MIDSTREAM
[2022-08-21 11:04] LABS: APTT 28 SECONDS (22-32)
[2022-08-21 11:09] LABS: ALANINE AMINOTRANSFERASE 37 U/L (12-78); ALBUMIN 3.7 G/DL (3.4-5.0); ALKALINE PHOSPHATASE 47 IU/L (46-116); ANION GAP 9 (8-16); ASPARTATE AMINO TRANSFERASE 34 U/L (10-37); BILIRUBIN,TOTAL 0.4 MG/DL (0.1-1.0); BLOOD UREA NITROGEN 3 MG/DL (7-18); BUN/CREATININE RATIO 4.2 (5.4-32.0); CALCIUM 7.9 MG/DL (8.5-10.1); CHLORIDE 103 MMOL/L (99-107); CREATININE 0.71 MG/DL (0.60-1.10); GLUCOSE 84 MG/DL (70-104); MAGNESIUM 1.8 MG/DL (1.5-2.4); POTASSIUM 3.9 MMOL/L (3.5-5.1); SODIUM 137 MMOL/L (135-145); TOTAL PROTEIN 7.5 G/DL (6.4-8.2); eGFR > 90 ML/MIN
[2022-08-21] MEDS ORDERED: POLY17PO10 PO (11:19)
[2022-08-21 11:55] VITALS: BP 169/90
== END 2022-08-21 11:58 | disposition home or self-care (01) ==
LOC: ER 08:24
DX: K62.5 Hemorrhage of anus and rectum (principal); Z79.899 Other long term (current) drug therapy
CPT/HCPCS: 36415; 71045; 80053; 81003; 83735; 85025; 85610; 85730; 86885; 86900; 86901; 93005; 99285

== ENCOUNTER 2023-01-26 07:40 | Emergency (ER) | payer MEDICAID ==
[~2023-01-26] VITALS: Ht 175.3 cm; Wt 61.4 kg
[2023-01-26 07:43] VITALS: BP 169/104
== END 2023-01-26 10:21 | disposition left against medical advice (07) ==
LOC: ER 07:41
DX: F41.9 Anxiety disorder, unspecified (principal); Z53.21 Procedure and treatment not carried out due to patient leaving prior to being seen by health care provider
CPT/HCPCS: 99281

== ENCOUNTER 2025-04-05 11:14 | Emergency (ER) | payer MEDICAID, OTHER ==
[~2025-04-05] VITALS: Ht 175.3 cm; Wt 57.6 kg
[~2025-04-05 11:14] MED LIST changes: +AMLO-888 PO; -AMLO10TA48 PO
[2025-04-05 11:17] VITALS: TEMP 97.6
--- NOTE | 2025-04-05 11:26 | ELECTROCARDIOGRAPH REPORT ---
[facility] Test Date: 2025-04-05 Test Time: 11:18:50 Pat Name: REILLY ACEVEDO Department: EMERGENCY ROOM Room: Gender: M Yoker: YOGESH : 1970 Requested By: DEPARTMENT EMERGENCY Order Number: [id number] Reading MD: Measurements Intervals [place] Rate: 68 P: 79 AL: 147 QRS: 76 QRSD: 110 T: 71 QT: 446 QTc: 475 Interpretive Statements Sinus rhythm RSR' in V1 or V2, right VCD or RVH Left ventricular hypertrophy Please click the below link to view image of tracing.
[2025-04-05] MEDS: normal saline 1000ml 1,000 ML IV ONE (11:40)
[2025-04-05 11:58] LABS: MEAN PLATELET VOLUME 5.8 FL (7.4-10.4); RED CELL DISTRIBUTION WIDTH 14.4 % (11.5-14.5)
[2025-04-05 12:11] LABS: TOTAL CARBON DIOXIDE 22.1 MMOL/L (24-32)
--- NOTE | 2025-04-05 12:20 | Physician Documentation ---
History of Present Illness ~ Chief Complaint: Abdominal Pain Stated Complaint: ABD PAIN Time Seen by MD: 11:27 Primary Medical Doctor: NONE Source: patient Mode of Arrival: EMS Exam Limitations: no limitations HPI Chief Complaint: Abdominal pain Caveat: None Independent Historians: Paramedics History of Present Illness: Patient is a 54-year-old man brought in by paramedics from work when he developed acute sudden right lower quadrant abdominal pain. The pain was sharp and when he moved it would radiate to the back. Paramedics gave Tylenol 1 g IV. When he got here his pain had resolved. Patient has chronic diarrhea. Patient drinks daily. Patient last drank this morning. Patient denies any fever. Patient denies any other associated symptoms. No nausea or vomiting. Review of systems: All systems were reviewed and are negative except for what is indicated in the history of present illness. Past Medical History: Alcoholism, chronic diarrhea Past Surgical History: None Social History: Tobacco use, alcohol use, marijuana use Medications: Reviewed as documented Nursing Notes Allergies: Reviewed as documented in Nursing Notes Medication Reconciliation Allergies: Coded Allergies: No Known Allergies (Unverified , 04/05/25) Scheduled Amlodipine Besylate (Norvasc), 1 TAB PO DAILY, (Reported) Lorazepam (Ativan), 1 TAB PO DAILY, (Reported) Nicotine 21 MG Patch* (Habitrol 21 MG Patch*), 1 PATCH TOP DAILY, (Reported) Past Medical History Past Medical History: *PSYCH* Past Surgical History: orthopedic surgeries Alcohol Use: Alcoholic Drug Use: none Lives with: Family Lives In: Home Occupation: employed Review of Systems All Other Systems at this time: Reviewed and Negative ROS Patient denies any other acute symptoms other than above. All other systems are negative Physical Exam Vital Signs: RN Vital Signs have been reviewed: Yes, Temperature: 97.6, Source: Oral, Heart Rate: 67, Respiratory Rate: 13, BP: 112/72, Pulse Oximetry: 98, Weight: 57.600 Oxygen Flow Rate: 0 Pulse Oximetry Reflects: adequate oxygenation Physical Exam General Appearance: No distress HEENT: Normal OP, moist oral mucosa, PERRL, EOMI Neck: supple, normal ROM, trachea midline Pulmonary: No respiratory distress, CTA, BS equal Cardiac: RRR, no murmur, rub or gallop, GI: nondistended, soft, nontender, normal bowel sounds, no guarding, no rebound Extremities: normal ROM, no swelling, non-tender Skin: intact, dry, warm, no rashes Neuro: AAOx3, speech is clear, no focal motor weakness Psych: normal affect, good eye contact, no apparent hallucination, normal speech Progress Results/Orders Results/Orders Orders - CLAIRE BIRMINGHAM MD Lipase (04/05/25 11:37) CMP (04/05/25 11:37) Normal Saline 1000ml (0.9% Sodium Chlori (04/05/25 11:40) Ethanol (04/05/25 11:57) Drug Screen, Urine (04/05/25 11:57) Completed Orders - CLAIRE BIRMINGHAM MD Cbc/Diff (04/05/25 11:37) Medications Received in ER Medications (Trade) Dose Ordered Sig/Mark Route PRN Reason Start Time Stop Time Status Last Admin Dose Admin Sodium Chloride 1,000 ml @ 1,000 mls/hr ONCE ONCE IV 04/05/25 11:40 04/05/25 12:39 04/05/25 11:40 1,000 MLS/HR Vital Signs 04/05/25 04/05/25 11:17 11:25 Temp 97.6 Pulse 67 Resp 13 B/P (MAP) 112/72 Pulse Ox 98 O2 Flow Rate 0 Laboratory Tests Test 04/05/25 11:48 White Blood Count 9.9 Red Blood Count 4.68 L Hemoglobin 12.9 L Hematocrit 39.3 L Mean Corpuscular Volume 84.1 Mean Corpuscular Hemoglobin 27.5 Mean Corpuscular Hemoglobin Concent 32.7 L Red Cell Distribution Width 14.4 Platelet Count 344 Mean Platelet Volume 5.8 L Neutrophils (%) (Auto) 74.6 Lymphocytes (%) (Auto) 17.5 L Monocytes (%) (Auto) 5.6 Eosinophils (%) (Auto) 1.9 Basophils (%) (Auto) 0.4 Neutrophils # (Auto) 7.4 Lymphocytes # (Auto) 1.7 Monocytes # (Auto) 0.6 Eosinophils # (Auto) 0.2 Basophils # (Auto) 0.0 CBC Comment Sodium Level 138 Chloride Level 106 Carbon Dioxide Level 22.1 L Anion Gap 10 Blood Urea Nitrogen 14 Glucose Level 115 H Total Bilirubin 0.4 Aspartate Amino Transf (AST/SGOT) 12 Alanine Aminotransferase (ALT/SGPT) 16 Alkaline Phosphatase 55 Total Protein 6.7 Albumin 3.2 L Globulin 3.5 Albumin/Globulin Ratio 0.9 L Lipase 50 Chemistry Comments Medical Decision Making Findings Differential diagnosis includes but is not limited to: Ureteral colic, colic, cecal volvulus, perforated viscus Laboratory data independent interpretation: CBC: Unremarkable CMP: Hypokalemia with a potassium of 2.9, otherwise unremarkable Toxicology: Emergency department course/medical decision-making: Patient presents with the acute abdominal pain that has since resolved upon arrival. Patient has a normal abdominal exam. Cause of his pain is unknown. Patient does not require any imaging. Test results and treatment plan reviewed with the patient. Patient is moderately hypokalemic and this is likely secondar y to the patient's chronic diarrhea. Patient will be given potassium here. Patient is stable for discharge. Departure Time of Disposition: 12:22 Disposition: 01 HOME / SELF CARE / HOMELESS Impression: Primary Impression: Abdominal pain of unknown cause Additional Impression: Hypokalemia Condition: Improved Discharge Instructions: Hypokalemia Prescriptions Potassium Chloride* (K-Dur*) 20 Meq Tab.prt.sr 1 TAB PO DAILY for 30 Days, #30 TAB Prov: CLAIRE BIRMINGHAM MD 04/05/25 Education Educated: Patient Educated regarding: diagnosis, treatment Signature Scribe Signature: . Attestation: . CLAIRE BIRMINGHAM MD Apr 05, 2025 12:20
[2025-04-05] MEDS ORDERED: POTA-207 PO (12:24)
[2025-04-05] MEDS: potassium Cl 20 mEq SR tablet PO ONE (12:36)
[2025-04-05 12:37] LABS: CREATININE 0.83 MG/DL (0.60-1.10); ETHANOL 65 MG/DL (<10); eCRCL 82 ML/MIN; eGFR > 90 ML/MIN
[2025-04-05 12:43] VITALS: BP 143/99; PULSE 67; RESP 14; O2SAT 100
== END 2025-04-05 12:46 | disposition home or self-care (01) ==
LOC: ER 11:14
DX: R10.31 Right lower quadrant pain (principal); F12.90 Cannabis use, unspecified, uncomplicated; E87.6 Hypokalemia; F10.90 Alcohol use, unspecified, uncomplicated; Y90.9 Presence of alcohol in blood, level not specified
CPT/HCPCS: 36415; 80053; 80320; 83690; 85025; 93005; 96360; 99284; J7030